=== PATIENT | male | born 1965 | race Caucasian/White ===

== ENCOUNTER 2020-05-22 09:59 | Day surgery (SDC) | payer BC, OTHER ==
[~2020-05-22 09:59] MED LIST: Lactated Ringers 1,000 ML IV SCH
[2020-05-22] MEDS ORDERED: Sodium Chloride 0.9% 10 ML Syringe FLUSH PRN (10:53)
[2020-05-22] MEDS ORDERED: Propofol 200 MG/20 ML SDV ONE ×2 (11:25→11:30)
[2020-05-22] MEDS ORDERED: fentaNYL 100 MCG/2 ML SDV ONE (11:25)
--- NOTE | 2020-05-22 16:27 | OR ---
PREOPERATIVE DIAGNOSIS: Screening colonoscopy. POSTOPERATIVE DIAGNOSIS: Screening colonoscopy. PROCEDURE PERFORMED: Screening colonoscopy. INDICATIONS: Mr. Knight is a 54-year-old male who presents for his first screening colonoscopy at this time. PROCEDURE IN DETAIL: He was brought to the endoscopy suite. Sedation was given per Anesthesia. He was placed in left lateral position. First, a rectal exam was done and was normal. Scope was introduced into the rectum and slowly advanced to the rectum, sigmoid, descending, transverse, and ascending colon until the cecum was reached. Upon reaching the cecum, scope was slowly withdrawn looking at all mucosal surfaces on the way out. No mucosal abnormalities, lesions, or polyps were noted. FINAL DIAGNOSIS: Normal colonoscopy. BKD: 05/22/2020 11:55:15 MODL: 05/22/2020 15:39:16 /[id number]
== END 2020-05-22 12:49 | disposition home or self-care (01) ==
LOC: VM.SDS 09:59
PROVIDERS: ATTEND Surgery
DX: Z12.11 Encounter for screening for malignant neoplasm of colon (principal); I10 Essential (primary) hypertension; E11.65 Type 2 diabetes mellitus with hyperglycemia; E11.69 Type 2 diabetes mellitus with other specified complication; Q89.09 Congenital malformations of spleen; Z79.82 Long term (current) use of aspirin; Z79.899 Other long term (current) drug therapy; Z79.84 Long term (current) use of oral hypoglycemic drugs; Z11.59 Encounter for screening for other viral diseases
CPT/HCPCS: 00812; 45378; 82962; 87635; J2704; J3010; J7120; U0002